=== PATIENT | male | born 1945 | race Caucasian/White ===

== ENCOUNTER 2017-08-19 07:24 | Outpatient (CLI) | payer MEDICARE, OTHER ==
--- NOTE | 2017-08-19 11:19 | Ultrasound Report ---
AORTA SCREEN: 08/19/2017 CLINICAL INDICATION: Screening. TECHNIQUE: Real-time sonographic imaging was performed by the mixing supervisor through the aorta. Multiple patient access representative static images were saved for review. FINDINGS: The abdominal aorta is normal in caliber, measuring 2.4 cm proximally , 2.2 cm in the mid portion, and 1.8 cm distally. The iliacs are normal in caliber. No free fluid is present. IMPRESSION: NO EVIDENCE OF AN ABDOMINAL AORTIC ANEURYSM. TD: 08/19/2017 11:17 MTDD
== END 2017-08-19 07:25 | disposition home or self-care (01) ==
LOC: DI 07:24
PROVIDERS: ATTEND Internal Medicine
DX: Z13.6 Encounter for screening for cardiovascular disorders (principal)
CPT/HCPCS: 76706